=== PATIENT | female | born 1965 | race Caucasian/White ===

== ENCOUNTER 2016-07-04 12:12 | Emergency (ER) | payer BC, OTHER ==
[~2016-07-04] VITALS: Ht 170.2 cm; Wt 88.5 kg
[2016-07-04] MEDS ORDERED: LEVO50IN IV (12:37)
[2016-07-04] MEDS ORDERED: LISI-538 PO (12:37)
[2016-07-04] MEDS ORDERED: fentaNYL 100 MCG/2 ML INJECTION (J3010) IV ONE (13:30)
[2016-07-04] MEDS ORDERED: ONDANSETRON 4MG/2ML VIAL (J2405) IV ONE (13:30)
[2016-07-04] MEDS ORDERED: NS 1,000 ML IV SCH (13:30)
[2016-07-04 14:18] LABS: MEAN CORPUSCULAR HEMOGLOBIN 33.2 pg (27.0-33.0); MEAN CORPUSCULAR HGB CONC 33.3 g/dl (32.0-36.5); MEAN CORPUSCULAR VOLUME 99.8 fl (80.0-96.0); WHITE BLOOD COUNT 16.5 K/mm3 (4.0-10.0)
--- NOTE | 2016-07-04 14:18 | REP ---
Clinical: Trauma. Technique: AP and lateral views of the left tibia / fibula. Findings: The patient is known to be status post the replacement which appears normal. There is no evidence for acute fracture or dislocation. Surrounding soft tissues are unremarkable. Impression: Normal knee replacement. No acute fracture or dislocation. Signed by Moses Vickers MD 07/04/2016 02:10 P
--- NOTE | 2016-07-04 14:18 | REP ---
Left femur four views: There is a comminuted fracture of the distal shaft with one shaft width displacement of the major fracture fragments. There is a left knee arthroplasty. No gross displacement arthroplasty fragments is identified. Signed by Jermaine Biggs MD 07/04/2016 02:10 P
--- NOTE | 2016-07-04 14:23 | REP ---
Left knee two views: There is a comminuted fracture of the distal shaft of the left femur with one shaft width displacement of the major fracture fragments. There is a total knee arthroplasty. There is no dislocation of the knee. The arthroplasty components appear tightly applied. There is no fracture of the visualized proximal tibia or fibula. Signed by Jermaine Biggs MD 07/04/2016 02:14 P
--- NOTE | 2016-07-04 14:24 | REP ---
Chest one-view HISTORY: Trauma Comparison: None The lungs are clear. The heart is normal in size. The pulmonary vasculature is normal in appearance. Impression: No acute disease. Signed by Moiz Kinney MD 07/04/2016 02:15 P
[2016-07-04 14:29] LABS: INR 0.99
[2016-07-04 14:38] LABS: ANION GAP 8 MEQ/L (8-16); BLOOD UREA NITROGEN 8 MG/DL (7-18); CALCIUM LEVEL 9.2 MG/DL (8.5-10.1); CARBON DIOXIDE LEVEL 28 MEQ/L (21-32); CHLORIDE LEVEL 102 MEQ/L (98-107); CREATININE FOR GFR 0.66 MG/DL (0.55-1.02); GLOMERULAR FILTRATION RATE > 60.0 (>51); GLUCOSE, FASTING 133 MG/DL (70-105); POTASSIUM SERUM 3.3 MEQ/L (3.5-5.1); SODIUM LEVEL 138 MEQ/L (136-145)
[2016-07-04] MEDS: HYDROmorphone HCL 1 MG/ML SYRINGE (J1170) IV PRN ×4 (15:02→20:06)
--- NOTE | 2016-07-04 19:24 | CR ---
DATE OF CONSULTATION: 07/04/2016 PROVIDER REQUESTING CONSULTATION: LEOLA Conroy CHIEF COMPLAINT: Left femur fracture. HISTORY: Jie is a 51-year-old female brought to the emergency room via ambulance for a left leg injury, status post mechanical fall. She was walking dog, slipped on mud off the sidewalk, landing directly on her left knee. She did have left total knee arthroplasty done approximately 10 years ago. She was noted to have a comminuted left femur fracture, and orthopedic consult was requested. PHYSICAL EXAMINATION: Patient evaluated by both myself and Dr. Santamaria. Patient appears to be comfortable on the exam bed. She is alert and oriented. She is cooperative. Left leg shows no gross edema. Her pedal pulses are palpable. Extremity appears warm and well perfused. Sensation is intact. Her calves are soft, nontender to palpation with no palpable cords noted. IMAGING: Two views of the left knee show a comminuted fracture to the distal shaft of the left femur with one shaft width displacement of the major fracture fragments. There is total knee arthroplasty. It does appear that fracture line extends to the prosthesis. There is no dislocation of the knee. The arthroplasty components appear well seated. IMPRESSION: Left comminuted, displaced fracture to the distal shaft of the left femur. PLAN: Multiple options were discussed with patient, to include remaining here for open reduction, internal fixation with plating, transfer to trauma center, or transfer to a joint specialist. Patient does state that she feels most comfortable seeing the joint specialist in [place], [place]. This transfer is recommended due to patient's young age, status post total knee arthroplasty, and the fact that the fracture extends into her prosthesis. Request splinting knee and an immobilizer. Greater than 20 minutes spent with patient discussing diagnosis and treatment options. DELMIS
[2016-07-04 20:11] VITALS: BP 153/71
--- NOTE | 2016-07-05 16:31 | ECGEPIP ---
Stationary ECG Study [facility] - ED Test Date: 2016-07-04 Pat Name: FANTA MADSEN Department: Room: - Gender: F [employer]: roxanna : 1965 Requested By: LINDA BHAGAT Order Number: [id number] Reading MD: Haydee Mercado Measurements Intervals [place] Rate: 77 P: 78 AK: 171 QRS: 79 QRSD: 98 T: 71 QT: 387 QTc: 440 Interpretive Statements SINUS RHYTHM NSTTW ABNORMALITY NO PRIOR FOR COMPARISON Electronically Signed On 07-05-2016 16:31:22 EDT by Haydee Mercado
== END 2016-07-04 20:14 | disposition short-term general hospital (02) ==
LOC: M ED 15:49
DX: S72.402A Unspecified fracture of lower end of left femur, initial encounter for closed fracture (principal); W01.0XXA Fall on same level from slipping, tripping and stumbling without subsequent striking against object, initial encounter; Y92.480 Sidewalk as the place of occurrence of the external cause; Y93.K1 Activity, walking an animal; Y99.8 Other external cause status; I10 Essential (primary) hypertension; E07.9 Disorder of thyroid, unspecified; E78.00 Pure hypercholesterolemia, unspecified; Z79.899 Other long term (current) drug therapy; Z88.5 Allergy status to narcotic agent; F17.210 Nicotine dependence, cigarettes, uncomplicated
CPT/HCPCS: 36415; 71010; 73552; 73560; 73590; 80048; 85027; 85610; 86850; 86900; 86901; 93005; 96374; 96375; 96376; 99284; J1170; J2405; J3010